=== PATIENT | male | born 1975 | race Caucasian/White ===

== ENCOUNTER 2023-10-14 08:16 | Day surgery (SDC) | payer OTHER, SELFPAY ==
[2023-10-11 12:59] VITALS: BMI 27.5
--- NOTE | 2023-10-13 11:00 | P.CONAN_ITS ---
Documented by User: Crystal Salas NP 10/13/23 11:01 HPI - Anesthesia Eval Consult details Narrative: 48yo M for Colonoscopy [facility] Past Medical History Medical History (Updated 10/11/23 @ 12:58 by Makeda Al RN) GERD (gastroesophageal reflux disease) Surgical History Surgical History (Updated 10/11/23 @ 12:58 by Makeda Al RN) Hx of tonsillectomy Social History Social History (Updated 10/11/23 @ 12:58 by Makeda Al RN) Patient Tobacco Use Status: Current someday Tobacco user Use of substances other than those prescribed or required for medical reasons: No Are you DNR?: No Advance Directives: No Advance Directives Information Provided: Yes Nutrition Risks: No Nutritional Risk Meds Allergies Allergy/AdvReac Type Severity Reaction Status Date / Time No Known Allergies Allergy Verified 10/11/23 12:59 Home Medications ?Medication ?Instructions ?Recorded ?Confirmed ?Last Taken ?Type omeprazole 20 mg capsule,delayed 20 mg PO DAILY 10/11/23 10/11/23 Unknown History release Exam Height,Weight and Vital Signs: Height 5 ft 11 in Weight 89.414 kg Assessment and Plan Assessment Anesthesia Assessment: Chart Reviewed Documented by User: Amish Jaeger MD 10/14/23 09:52 [facility] Past Medical History Medical History (Updated 10/11/23 @ 12:58 by Makeda Al RN) GERD (gastroesophageal reflux disease) Family History Family history of problems with anesthesia: No Surgical History Surgical History (Updated 10/11/23 @ 12:58 by Makeda Al RN) Hx of tonsillectomy History of Problems with Anesthesia: No Social History Social History (Updated 10/11/23 @ 12:58 by Makeda Al RN) Patient Tobacco Use Status: Current someday Tobacco user Use of substances other than those prescribed or required for medical reasons: No Are you DNR?: No Advance Directives: No Advance Directives Information Provided: Yes Nutrition Risks: No Nutritional Risk Meds Allergies Allergy/AdvReac Type Severity Reaction Status Date / Time No Known Allergies Allergy Verified 10/11/23 12:59 Home Medications ?Medication ?Instructions ?Recorded ?Confirmed ?Last Taken ?Type omeprazole 20 mg capsule,delayed 20 mg PO DAILY 10/11/23 10/11/23 Unknown History release Exam Airway Mallampati Class: II TM Dist: >3cm Neck ROM: Full Loose/Missing/Broken Teeth: Yes (3) Heart: rrr Lungs: cta Assessment and Plan Assessment Anesthesia Assessment: Anesthesia Plan Discussed Final Anesthetic Review Family History of Problems with Anesthesia: No History of Problems with Anesthesia: No ASA Class: II Final Preanesthetic Review: No Changes in Pt Med Stat, Meds/Allgs Chart Reviewed, Consent Obtained/Reviewed and Anes Risks/Benef Reviewed Patient Risk: Intermediate Procedure Risk: Intermediate Anesthetic Plan Anesthetic Plan: MAC: Disposition: Standard PACU
[2023-10-14 08:27] VITALS: BP 123/75; PULSE 100; RESP 19; TEMP 36.6; O2SAT 98
[2023-10-14] MEDS: Lactated Ringers 1,000 ML 100 ML IVCONT (08:45)
--- NOTE | 2023-10-14 10:15 | MHC.SHP ---
Pre-Procedural Eval Section A - 24 Hr Update-Section A only Date of Service: 10/14/23 Section B - Complete if H&P > 30 days Chief Complaint: screening Details of Present Illness: see H&P no changes Relevant Family History (Specify if Yes): No Relevant Social History: None Present Medications: see Short Stay Collaborative assessment Medical History: No relevant PMH History of Previous Operations: No relevant previous surgery Allergies: Allergies Allergy/AdvReac Type Severity Reaction Status Date / Time No Known Allergies Allergy Verified 10/11/23 12:59 Review of Systems Sugical H&P ROS: Negative: Constitution, Cardiovascular, Respiratory, Neurological, Psychiatric, Hem-Onc, Allergic/Immunologic, Gastrointestinal, Genitourinary, Musculoskeletal, Integumentary, Endocrine and Eyes/Ears/Nose/Throat Exam Surgical H&P Exam: Normal: HEENT, Normal: Heart, Normal: Lungs, Normal: Extremities, Normal: Abdomen, Normal: Skin and Normal: Neurological Plan Diagnosis/Plan: Unchanged I have reviewed the history and physical and performed a pertinent physical examination on my patient. No changes have occurred unless specified. Time Spent With Patient Time: Total time managing care of this patient today ____ minutes.
[2023-10-14 10:59] VITALS: BP 98/60; PULSE 69; RESP 16; TEMP 36.4; O2SAT 95
[2023-10-14 11:14] VITALS: BP 112/56; PULSE 86; RESP 18; TEMP 36.4; O2SAT 96
--- NOTE | 2023-10-14 12:20 | OP_ITS ---
DATE OF SERVICE: 10/14/2023 SURGEON: Augie Waldrop MD INDICATIONS: Colon cancer screening. PREOPERATIVE DIAGNOSIS: POSTOPERATIVE DIAGNOSIS: PROCEDURE PERFORMED: Colonoscopy to the terminal ileum. ESTIMATED BLOOD LOSS: COMPLICATIONS: ANESTHESIA: Monitored anesthesia care. ASSISTANTS: SPECIMENS: DESCRIPTION OF PROCEDURE: A history and physical were performed. The risks and benefits of the procedure were explained to the patient. Informed consent was obtained. The patient was placed in the left lateral decubitus position. A digital rectal exam was performed and was found to be normal. The Olympus pediatric video colonoscope was introduced into the rectum and advanced to the cecum. The cecum was identified by transillumination, palpation, and identification of ileocecal valve. Examination was performed and the scope was removed. He tolerated the procedure well and was taken to recovery in stable condition. FINDINGS: The terminal ileum was examined and appeared normal. The visualized colonic mucosa was normal. The quality of the prep was good. No polyps were identified. There was scattered diverticulosis throughout the colon. Retroflexed examination showed some small internal hemorrhoids. IMPRESSION: Normal colonoscopy. RECOMMENDATION: 1. Follow up as needed. 2. Repeat colonoscopy is recommended in 10 years for average risk individuals. MD OXANA Triplett/IDALIA / [id number]
== END 2023-10-14 11:44 | disposition home or self-care (01) ==
PROVIDERS: PCP Internal Medicine; Visit Provider Internal Medicine Gastroenterology
PROC: 0DJD8ZZ Inspection of Lower Intestinal Tract, Via Natural or Artificial Opening Endoscopic (ICD-10-PCS; CPT 45378; principal; 2023-10-14 10:00)
DX: Z12.11 Encounter for screening for malignant neoplasm of colon (principal); K57.30 Diverticulosis of large intestine without perforation or abscess without bleeding; K64.8 Other hemorrhoids; K21.9 Gastro-esophageal reflux disease without esophagitis; Z79.899 Other long term (current) drug therapy
CPT/HCPCS: 45378